=== PATIENT | female | born 1985 | race Caucasian/White ===

== ENCOUNTER 2016-05-27 14:47 | Emergency (ER) | payer OTHER ==
[2016-05-27 15:11] VITALS: BP 137/68
[2016-05-27] MEDS ORDERED: EPINEPHrine AMP 1 MG/ML IM ONE (15:16)
[2016-05-27] MEDS ORDERED: predniSONE TAB* 20 MG PO ONE (15:16)
--- NOTE | 2016-05-27 15:23 | UC ---
Allergic Reaction HPI - HPI Summary HPI Summary: 30 yo female s/p two allergy shots this afternoon Around 1:30 seh developed facial rash/erthyema/hives and nasal congestion Took 50mg benadryl about 2 PM Now throat feels tight benadryl has not seemed to help - History of Current Complaint Chief Complaint: UCAllergicReaction Stated Complaint: ALLERGIC REACTION Time Seen by Provider: 05/27/16 15:12 Hx Obtained From: Patient Hx Last Menstrual Period: 05/18/16 Onset/Duration: Sudden Onset, Lasting Hours Severity Initially: Mild Severity Currently: Moderate Pain Intensity: 0 Pain Scale Used: 0-10 Numeric Character: Swelling, Pruritus Aggrevating Factor(s): Nothing Alleviating Factor(s): Nothing Associated Signs And Symptoms: Positive: Rash, Throat Tightening, Other: - nasal congestion - Related Hx Possible Reaction To: Other: - allergy shots - Allergies/Home Medications Allergies/Adverse Reactions: Allergies Allergy/AdvReac Type Severity Reaction Status Date / Time No Known Allergies Allergy Verified 05/27/16 15:04 Home Medications: Home Medications diPHENhydraMINE PO* [Benadryl PO*] 1 tab PRN 05/27/16 [History] PMH/Surg Hx/FS Hx/Imm Hx Previously Healthy: Yes - Surgical History Surgical History: Yes Surgery Procedure, Year, and Place: LEEP; wisdom teeth - Family History Known Family History: Negative: Cardiac Disease, Hypertension, Diabetes - Social History Alcohol Use: Occasionally Substance Use Type: None Smoking Status (MU): Former Smoker Amount Used/How Often: 3 cigs weekly Review of Systems Constitutional: Negative Skin: Rash Eyes: Negative ENT: Negative Respiratory: Negative Cardiovascular: Negative Gastrointestinal: Negative Genitourinary: Negative Motor: Negative Neurovascular: Negative Musculoskeletal: Negative Neurological: Negative Psychological: Negative All Other Systems Reviewed And Are Negative: Yes Physical Exam Triage Information Reviewed: Yes Appearance: Well-Appearing, No Pain Distress, Well-Nourished Vital Signs: Initial Vital Signs Temp 98.4 F 05/27/16 15:06 Pulse 87 05/27/16 15:06 Resp 18 05/27/16 15:06 BP 137/68 05/27/16 15:06 Pulse Ox 99 05/27/16 15:06 Vital Signs Reviewed: Yes Eyes: Positive: Conjunctiva Clear ENT: Positive: Hearing grossly normal, Nasal congestion, Nasal drainage, TMs normal, Muffled/hoarse voice - sl hoarseness. Negative: Trismus Neck exam: Normal Neck: Positive: Supple, Nontender Respiratory Exam: Normal Respiratory: Positive: Lungs clear, Normal breath sounds, No respiratory distress, No accessory muscle use Cardiovascular: Positive: RRR, No Murmur, Pulses Normal Musculoskeletal: Positive: Strength Intact, ROM Intact Neurological: Positive: Alert Psychological Exam: Normal Skin Exam: Other - diffuse erythema from neck up/indurated around both shot sites Allergic Reaction Course/Dx - Course Course Of Treatment: at d/c redness and pruritis gone. throat no longer tight - Differential Dx/Diagnosis Provider Diagnoses: anaphylatic reaction Discharge - Discharge Plan Condition: Stable Disposition: HOME Prescriptions: Prednisone 60 mg PO DAILY #6 tab Patient Education Materials: Anaphylaxis (ED) Referrals: No Primary Care Phys,NOPCP [Primary Care Provider] - Additional Instructions: benadryl 50mg every 6 hours as needed use epi pen if you throat starts to tighten again...you should get rechecked if you use an epi pen take the next two dose of prednisone in the AMs see leaf coverer as planned
== END 2016-05-27 16:04 | disposition home or self-care (01) ==
LOC: UCEAST 14:47
DX: T80.52XA Anaphylactic reaction due to vaccination, initial encounter (principal); T50.Z95A Adverse effect of other vaccines and biological substances, initial encounter; Y92.9 Unspecified place or not applicable; R21 Rash and other nonspecific skin eruption; Z87.891 Personal history of nicotine dependence
CPT/HCPCS: 96372; 99212; G0463; J0171; J7512

== ENCOUNTER 2017-11-18 18:40 | Emergency (ER) | payer OTHER ==
--- NOTE | 2017-11-18 18:49 | UC ---
Lower Extremity/Ankle HPI - HPI Summary HPI Summary: 31 yo female presents with right great toe pain. She tells me that about a week ago she kicked a door in an effort to try to open it - she forgot that she wasn' t wearing shoes and injured her right great toe. Had significant pain, swelling , and bruising. Since that time pain has improved, but she is still having pain with ambulation. Denies numbness or tingling. - History of Current Complaint Stated Complaint: FOOT INJURY Time Seen by Provider: 11/18/17 18:45 Hx Obtained From: Patient Hx Last Menstrual Period: 05/18/16 Severity Initially: Moderate Severity Currently: Mild Pain Intensity: 2 Pain Scale Used: 0-10 Numeric Aggravating Factor(s): Standing, Ambulation Able to Bear Weight: Yes - Allergies/Home Medications Allergies/Adverse Reactions: Allergies Allergy/AdvReac Type Severity Reaction Status Date / Time No Known Allergies Allergy Verified 11/18/17 18:51 Home Medications: Home Medications LevoCETirizine TAB (NF) [Xyzal TAB (NF)] 5 mg PO DAILY 11/18/17 [History Confirmed 11/18/17] PMH/Surg Hx/FS Hx/Imm Hx - Additional Past Medical History Additional PMH: Allergies Previously Healthy: Yes - Surgical History Surgical History: Yes Surgery Procedure, Year, and Place: LEEP; wisdom teeth - Family History Known Family History: Negative: Cardiac Disease, Hypertension, Diabetes - Social History Occupation: Employed Full-time Lives: With Family Alcohol Use: Occasionally Substance Use Type: None Smoking Status (MU): Former Smoker Amount Used/How Often: 3 cigs weekly Review of Systems Constitutional: Negative Skin: Negative Respiratory: Negative Cardiovascular: Negative Neurovascular: Negative Musculoskeletal: Other: - Right great toe pain Neurological: Negative Psychological: Negative All Other Systems Reviewed And Are Negative: Yes Physical Exam - Summary Physical Exam Summary: GENERAL: NAD. WDWN. No pain distress. SKIN: No rashes, sores, lesions, or open wounds. NECK: Supple. Nontender. No lymphadenopathy. CHEST: No accessory muscle use. Breathing comfortably and in no distress. CV: Pulses intact PT and DP. Brisk cap refill. MSK: RIGHT GREAT TOE: TTP at IP joint. Flexion with pain. FROM. No edema or obvious bony deformities. NEURO: Alert. Sensations intact and symmetric B/L LEs PSYCH: Age appropriate behavior. Triage Information Reviewed: Yes Vital Signs: Vital Signs: Temp Pulse Resp BP Pulse Ox 100.5 F 81 18 156/70 97 11/18/17 18:51 11/18/17 18:51 11/18/17 18:51 11/18/17 18:51 11/18/17 18:51 Lower Extremity Course/Dx - Course Course Of Treatment: XR: REPORT AND IMPRESSION: Intra-articular fracture at the base of the distal phalanx with oblique coronal. fracture plane. Dorsal displacement of the 0.7 cm fracture fragment results in up to 0.4. cm articular surface incongruity. Overlying soft tissue swelling. Normal articular. alignment. Pt declined crutches, post-op shoe, and CAM boot at this time. Advised to RICE and follow up with Ortho. - Differential Dx/Diagnosis Provider Diagnoses: Right great toe fracture displaced Discharge - Sign-Out/Discharge Documenting (check all that apply): Patient Departure - Discharge Plan Condition: Stable Disposition: HOME Patient Education Materials: Toe Fracture (ED) Referrals: No Primary Care Phys,NOPCP [Primary Care Provider] - Memo Herrera MD [Medical Doctor] - As Soon As Possible Additional Instructions: If you develop a fever, shortness of breath, chest pain, new or worsening symptoms - please call your PCP or go to the ED. Your blood pressure was high at todays visit. Please see your primary provider within 4 weeks for recheck and re-evaluation. 1) Rest, Ice, and Elevate your foot/toe as much as possible 2) Please follow up with Orthopedics at the number below for further treatment - Billing Disposition and Condition Condition: STABLE Disposition: Home
[2017-11-18 18:58] VITALS: BP 156/70
--- NOTE | 2017-11-18 19:25 | RAD ---
Indication: RIGHT great toe pain following kicking injury one week ago. Comparison: No relevant prior exams available on the [facility] [facility] for comparison. Technique: 3 views of the RIGHT great toe. REPORT AND IMPRESSION: #. Intra-articular fracture at the base of the distal phalanx with oblique coronal fracture plane. Dorsal displacement of the 0.7 cm fracture fragment results in up to 0.4 cm articular surface incongruity. Overlying soft tissue swelling. Normal articular alignment.
== END 2017-11-18 19:42 | disposition home or self-care (01) ==
LOC: UCEAST 18:40
DX: S92.424A Nondisplaced fracture of distal phalanx of right great toe, initial encounter for closed fracture (principal); W22.8XXA Striking against or struck by other objects, initial encounter; Y93.9 Activity, unspecified; Y92.9 Unspecified place or not applicable; Z87.891 Personal history of nicotine dependence
CPT/HCPCS: 99201; G0463

== ENCOUNTER 2021-06-02 15:04 | Inpatient (IN) ==
[2021-06-02 16:21] LABS: Urine Benzodiazepine Screen None Detected (None Detect); Urine Cannabinoids Screen None Detected (None Detect); Urine Opiates Screen None Detected (None Detect)
[2021-06-02 16:35] LABS: Urine Appearance Clear; Urine Bilirubin Negative (Negative); Urine Blood 1+ (Negative); Urine Color Straw; Urine Glucose Negative (Negative); Urine Ketones Negative (Negative); Urine Nitrite Negative (Negative); Urine Protein Negative (Negative); Urine Specific Gravity 1.004 (1.002-1.030); Urine Urobilinogen Negative (Negative)
[2021-06-02 16:54] LABS: Urine Bacteria Absent (Absent); Urine Red Blood Cell Trace(0-2/hpf) (Absent); Urine Squamous Epithelial Cell Present (Absent); Urine White Blood Cell Absent (Absent)
[2021-06-02] MEDS ORDERED: Lidocaine 1% VIAL 10 MG/ML VIAL ONE (18:00)
[2021-06-03] MEDS: Lactated Ringers 1000 ml BAG 1,000 ML IV SCH ×2 (18:22→18:44)
[2021-06-03 18:34] LABS: ABS Basophils 0.1 10^3/ul (0-0.2); ABS Lymphocytes 0.7 10^3/ul (1.0-4.8); ABS Neutrophils 11.8 10^3/ul (1.5-7.7); Hematocrit 36 % (35-47); Hemoglobin 12.5 g/dL (12.0-16.0); Lymphocyte % 5.2 %; Mean Corpuscular HGB Conc 35 g/dL (31-36); Mean Corpuscular Hemoglobin 31 pg (27-31); Mean Corpuscular Volume 90 fL (80-97); Mean Platelet Volume 9.9 fL (7.4-10.4); Nucleated Red Blood Cells % 0.1; Platelet Count 108 10^3/uL (150-450); Red Blood Count 4.03 10^6 /uL (3.70-4.87); Red Cell Distribution Width 13 % (10-15); White Blood Count 13.5 10^3/uL (3.5-10.8)
[2021-06-03] MEDS ORDERED: OBEPIDURAL 250 ML EPIDURAL ONE (18:34)
[2021-06-03] MEDS ORDERED: Sodium Citrate/Citric Acid LIQ 15 ML UDC PO PRN (20:27)
[2021-06-03] MEDS ORDERED: Lactated Ringers 1000 ml BAG 1,000 ML IV ONE (20:27)
[2021-06-03] MEDS ORDERED: Phenylephrine 40 mcg/mL 10mL (400mcg) SYRINGE IV PUSH PRN ×2 (20:27)
[2021-06-03] MEDS ORDERED: EPHEDrine (Pressors) 50 MG/ML VIAL IV PUSH PRN ×2 (20:27)
[2021-06-03] MEDS ORDERED: Lactated Ringers 1000 ml BAG 1,000 ML IV SCH (21:00)
[2021-06-03] MEDS ORDERED: OBEPIDURAL 250 ML EPIDURAL SCH (21:00)
[2021-06-03 22:11] LABS: Urine Appearance Clear; Urine Bilirubin Negative (Negative); Urine Blood 2+ (Negative); Urine Color Yellow; Urine Glucose Negative (Negative); Urine Ketones 2+ (Negative); Urine Nitrite Negative (Negative); Urine Protein Negative (Negative); Urine Specific Gravity 1.005 (1.002-1.030); Urine Urobilinogen Negative (Negative)
[2021-06-03 22:14] LABS: Urine Bacteria Absent (Absent); Urine Red Blood Cell Trace(0-2/hpf) (Absent); Urine Squamous Epithelial Cell Present (Absent); Urine White Blood Cell Trace(0-5/hpf) (Absent)
[2021-06-04] MEDS ORDERED: Oxytocin in LR 20 UNITS/1,000 ML BAG IVPB SCH ×2 (02:00→08:00)
[2021-06-04] MEDS ORDERED: Gentamicin ADULT per pharmacy 1 NOTE MISC FOLLOW UP PRN (07:03)
[2021-06-04] MEDS ORDERED: Ampicillin ADVAN 2 GM in NS 0.9% 100 ML IVPB ONE (07:10)
[2021-06-04] MEDS: Ampicillin ADVAN 2 GM in NS 0.9% 100 ml BAG 100 ML IVPB SCH ×3 (07:16→20:19)
[2021-06-04] MEDS ORDERED: Witch Hazel PAD JAR TOPICAL PRN (07:57)
[2021-06-04] MEDS ORDERED: Dibucaine 1% OINT 28.35 GM TUBE PR PRN (07:57)
[2021-06-04] MEDS ORDERED: Glycerin ADULT 2.4 gm SUPP PR PRN (07:57)
[2021-06-04] MEDS ORDERED: Gentamicin ADULT 340 MG in NS 0.9% 100 ml BAG 100 ML IVPB SCH (08:00)
[2021-06-04 17:05] LABS: Hematocrit 29 % (35-47); Hemoglobin 10.1 g/dL (12.0-16.0); Mean Corpuscular HGB Conc 35 g/dL (31-36); Mean Corpuscular Hemoglobin 32 pg (27-31); Mean Corpuscular Volume 91 fL (80-97); Mean Platelet Volume 9.7 fL (7.4-10.4); Platelet Count 115 10^3/uL (150-450); Red Blood Count 3.19 10^6 /uL (3.70-4.87); Red Cell Distribution Width 13 % (10-15); White Blood Count 20.3 10^3/uL (3.5-10.8)
[2021-06-04 17:09] LABS: ABS Lymphocytes 1.1 10^3/ul (1.0-4.8); ABS Monocytes 1.6 10^3/ul (0-0.8); ABS Neutrophils 17.5 10^3/ul (1.5-7.7); Lymphocyte % 5.4 %
[2021-06-04] MEDS: Lactated Ringers 1000 ml BAG 1,000 ML IV SCH (20:18)
[2021-06-04] MEDS ORDERED: RHO D Immune Globulin (HUMAN) 300 MCG = 1,500 I.U. INJ IM ONE (21:26)
[2021-06-05] MEDS: Ampicillin ADVAN 2 GM in NS 0.9% 100 ml BAG 100 ML IVPB SCH ×2 (02:40→09:00)
[2021-06-05 06:56] LABS: ABS Eosinophils 0.1 10^3/ul (0-0.6); ABS Lymphocytes 2.5 10^3/ul (1.0-4.8); ABS Monocytes 1.1 10^3/ul (0-0.8); ABS Neutrophils 11.9 10^3/ul (1.5-7.7); Eosinophil % 0.7 %; Hematocrit 28 % (35-47); Hemoglobin 9.9 g/dL (12.0-16.0); Mean Corpuscular HGB Conc 35 g/dL (31-36); Mean Corpuscular Hemoglobin 32 pg (27-31); Mean Corpuscular Volume 92 fL (80-97); Mean Platelet Volume 9.8 fL (7.4-10.4); Platelet Count 110 10^3/uL (150-450); Red Blood Count 3.09 10^6 /uL (3.70-4.87); Red Cell Distribution Width 13 % (10-15); White Blood Count 15.7 10^3/uL (3.5-10.8)
[2021-06-06 10:20] VITALS: BP 114/61
== END 2021-06-06 14:52 | disposition home or self-care (01) | DRG 541 ==
LOC: MCHOBOUT 15:04 → MCHOB 15:33
PROVIDERS: ADMIT Midwife; ATTEND Midwife

== ENCOUNTER 2023-12-27 07:26 | Inpatient (IN) ==
[2023-12-27] MEDS ORDERED: Lidocaine 1% VIAL 10 MG/ML 30 ML VIAL INJ PRN (07:33)
[2023-12-27] MEDS ORDERED: Lactated Ringers 1000 ml BAG 1,000 ML IV ONE (07:33)
[2023-12-27] MEDS ORDERED: Nalbuphine 10 MG/ML 1 ML VIAL IV PRN (07:33)
[2023-12-27] MEDS ORDERED: Oxytocin in LR 20,000 MILLI.UNIT/1,000 ML BAG IV SCH (07:35)
[2023-12-27 07:59] LABS: ABS Eosinophils 0.1 10^3/uL (0.0-0.5); ABS Lymphocytes 2.3 10^3/uL (1.0-4.8); ABS Monocytes 0.6 10^3/uL (0.0-0.9); ABS Neutrophils 5.2 10^3/uL (1.5-7.6); ABS Nucleated RBC 0.01 10^3/ul; Eosinophil % 0.7 %; Hematocrit 34.4 % (35-45); Hemoglobin 12.2 g/dL (11.5-14.3); Lymphocyte % 28.3 %; Mean Corpuscular Hemoglobin 32.1 pg (27-33); Mean Corpuscular Hgb Conc 35.6 g/dL (31-36); Mean Corpuscular Volume 90.1 fL (80-97); Mean Platelet Volume 9.9 fL (7.5-11.2); Nucleated Red Blood Cells % 0.1 %/100WBC (0.0-0.8); Platelet Count 121 10^3/uL (150-450); Red Blood Count 3.82 10^6/uL (3.63-4.92); Red Cell Distribution Width 13.5 % (12-17); White Blood Count 8.2 10^3/uL (3.8-11.8)
[2023-12-27] MEDS ORDERED: Lactated Ringers 1000 ml BAG 1,000 ML IV SCH ×2 (08:00→14:00)
[2023-12-27] MEDS ORDERED: Methylergonovine 0.2 mg AMPULE 1 ml AMP ONE (08:10)
[2023-12-27] MEDS: Oxytocin in LR 20,000 MILLI.UNIT/1,000 ML BAG IV SCH (13:17)
[2023-12-27] MEDS ORDERED: Glycerin ADULT 2.4 gm SUPP PR PRN (13:31)
[2023-12-27] MEDS: Buffered Lidocaine 1% SYRIN 1 ml INTRADERM ONE (15:53)
[2023-12-27 18:59] LABS: Urine Benzodiazepine Screen None Detected (None Detect); Urine Cannabinoids Screen None Detected (None Detect); Urine Opiates Screen None Detected (None Detect)
[2023-12-28 07:04] LABS: ABS Eosinophils 0.1 10^3/uL (0.0-0.5); ABS Monocytes 0.9 10^3/uL (0.0-0.9); ABS Neutrophils 6.1 10^3/uL (1.5-7.6); Eosinophil % 0.6 %; Hematocrit 31.9 % (35-45); Hemoglobin 11.4 g/dL (11.5-14.3); Lymphocyte % 29.7 %; Mean Corpuscular Hemoglobin 32.2 pg (27-33); Mean Corpuscular Hgb Conc 35.9 g/dL (31-36); Mean Corpuscular Volume 89.7 fL (80-97); Mean Platelet Volume 9.9 fL (7.5-11.2); Nucleated Red Blood Cells % 0.1 %/100WBC (0.0-0.8); Platelet Count 119 10^3/uL (150-450); Red Blood Count 3.55 10^6/uL (3.63-4.92); Red Cell Distribution Width 13.2 % (12-17)
[2023-12-28] MEDS: Dibucaine 1% OINT 28.35 GM TUBE PR PRN (08:58)
[2023-12-28] MEDS: Witch Hazel PAD JAR TOPICAL PRN (08:58)
[2023-12-29 07:45] VITALS: BP 103/51
[2023-12-29] MEDS: RHO D Immune Globulin (HUMAN) 300 MCG = 1,500 I.U. INJ IM PRN (13:54)
== END 2023-12-29 19:41 | disposition home or self-care (01) | DRG 560 ==
LOC: MCHOBOUT 07:26 → MCHOB 07:32
PROVIDERS: ADMIT Midwife; ATTEND Midwife